=== PATIENT | female | born 1995 | race Caucasian/White ===

== ENCOUNTER 2017-05-09 20:55 | Inpatient (IN) | payer OTHER ==
[~2017-05-09] VITALS: Ht 167.6 cm; Wt 94.8 kg
[2017-05-09] MEDS ORDERED: OXYTOCIN 10 UNITS/ML VIAL IM ONE (21:40)
[2017-05-09] MEDS ORDERED: PROMETHAZINE 25 MG/ML VIAL IVP PRN (21:40)
[2017-05-09] MEDS ORDERED: NALBUPHINE 10 MG/ML AMP IVP PRN (21:40)
[2017-05-09] MEDS ORDERED: OXYTOCIN 20 UNITS in LACTATED RINGERS 1,000 ML IV SCH (21:40)
[2017-05-09] MEDS ORDERED: AMPICILLIN 2,000 MG in NACL 0.9% 100 ML IV ONE (21:55)
[2017-05-09] MEDS: LACTATED RINGERS 1,000 ML IV SCH (22:04)
[2017-05-09] MEDS ORDERED: AMPICILLIN 2,000 MG VIAL ONE (22:07)
[2017-05-09] MEDS ORDERED: NALBUPHINE HYDROCHLORIDE 10 MG/ML VIAL ONE (22:07)
[2017-05-09] MEDS ORDERED: PROMETHAZINE 25 MG/ML VIAL ONE (22:08)
[2017-05-09 22:10] LABS: BASOPHILS # (AUTO) 0.1 K/uL (0.00-0.22); BASOPHILS % (AUTO) 0.7 % (0.0-2.0); EOSINOPHILS # (AUTO) 0.1 K/uL (0-0.4); EOSINOPHILS % (AUTO) 0.7 % (0.0-4.0); HEMATOCRIT 32.8 % (36-48); HEMOGLOBIN 10.9 g/dL (12.0-16.0); LYMPHOCYTES # (AUTO) 3.3 K/uL (2.5-16.5); LYMPHOCYTES % (AUTO) 22.6 % (20.5-51.1); MEAN CORPUSCULAR HEMOGLOBIN 29 pg (27-31); MEAN CORPUSCULAR HGB CONC 33 g/dL (33-37); MEAN CORPUSCULAR VOLUME 88 fL (80-94); MONOCYTES # (AUTO) 0.6 K/uL (0.8-1.0); MONOCYTES % (AUTO) 4.3 % (1.7-9.3); NEUTROPHILS # (AUTO) 10.4 K/uL (1.8-7.7); NEUTROPHILS % (AUTO) 71.7 % (42.2-75.2); PLATELET COUNT (AUTO) 393 K/uL (140-450); RED BLOOD CELL COUNT(AUTO) 3.75 MIL/uL (4.20-5.40); WHITE BLOOD COUNT (AUTO) 14.5 K/uL (4.5-11.0)
[2017-05-09 22:23] LABS: BILIRUBIN,URINE NEGATIVE (NEGATIVE); BLOOD, URINE 3+ (NEGATIVE); COLOR,URINE YELLOW (YELLOW); LEUKOCYTE ESTERASE ,URINE TRACE (NEGATIVE); NITRITE, URINE NEGATIVE (NEGATIVE); PH,URINE 6.5 (5.0-9.0); UGLUCOSE NEGATIVE (NEGATIVE)
[2017-05-09 22:24] LABS: APPEARANCE,URINE HAZY (CLEAR)
[2017-05-09 22:29] LABS: BARBITURATE, URINE POS. ng/ml (NEG <=200); BENZODIAZEPINE, URINE NEG. ng/mL (NEG <=200); CANNABINOID, URINE NEG. ng/mL (NEG <=50); COCAINE, URINE NEG. ng/mL (NEG <=300); OPIATE, URINE NEG. ng/mL (NEG <=2000); PHENCYCLIDINE SCREEN,URINE NEG. ng/mL (NEG <=25)
[2017-05-09] MEDS ORDERED: BUPIVACAINE 0.125%/NS PREMIX 250 ML ONE (22:42)
[2017-05-09 22:52] LABS: RBC,URINE 0-5 (RARE) /HPF (0-5)
[2017-05-09 22:53] LABS: WBC,URINE 20-60 /HPF (0-5)
[2017-05-09] MEDS ORDERED: BUPIVACAINE 0.125%/NS PREMIX 250 ML EPI SCH (23:30)
[2017-05-10] MEDS ORDERED: AMPICILLIN 1,000 MG in NACL 0.9% 50 ML IV SCH ×2
[2017-05-10] MEDS ORDERED: FERR325E14 PO (00:26)
[2017-05-10] MEDS ORDERED: PREN-546 PO (00:26)
[2017-05-10 00:30] VITALS: BP 132/75
[2017-05-10] MEDS ORDERED: OXYTOCIN 10 UNITS/ML VIAL ONE (01:35)
[2017-05-10] MEDS ORDERED: AMPICILLIN 1,000 MG VIAL ONE (01:35)
[2017-05-10] MEDS ORDERED: OXYTOCIN 20 UNITS/LR PREMIX 1,000 ML IV ONE (01:36)
[2017-05-10] MEDS: LACTATED RINGERS 1,000 ML IV SCH (01:50)
[2017-05-10] MEDS ORDERED: BENZOCAINE/MENTHOL 20%-0.5% 60 GM CAN TP PRN (05:25)
[2017-05-10] MEDS ORDERED: TEMAZEPAM 15 MG CAP PO PRN (05:25)
[2017-05-10] MEDS ORDERED: oxyCODONE/APAP 5/325 MG 1 TAB TAB PO PRN (05:25)
[2017-05-10] MEDS ORDERED: OXYTOCIN 10 UNITS/ML VIAL IM PRN (05:25)
[2017-05-10] MEDS ORDERED: METHYLERGONOVINE 0.2 MG/ML AMP IM PRN (05:25)
[2017-05-10] MEDS ORDERED: MEASLES, MUMPS, AND RUBELLA 1 VIAL SQVAC PRN (05:25)
[2017-05-10] MEDS ORDERED: HYDROcodone/APAP 5/325 MG 1 TAB TAB PO PRN (05:25)
[2017-05-10] MEDS ORDERED: IBUPROFEN 800 MG TAB PO PRN (05:25)
--- NOTE | 2017-05-10 06:33 | NUR ---
PATIENT HAS BEEN SCREENED AND CATEGORIZED LOW NUTRITION RISK. PATIENT WILL BE SEEN WITHIN 7 DAYS OF ADMISSION. 05/16/17 DAPHNE BRISENO MS, RDN
[2017-05-10] MEDS ORDERED: DOCUSATE SOD/SENNA 50/8.6 MG 1 TAB PO SCH (21:00)
[2017-05-11 06:35] LABS: HEMATOCRIT 28.3 % (36-48); HEMOGLOBIN 9.3 g/dL (12.0-16.0)
[2017-05-12] MEDS ORDERED: IBUP-1842 PO (15:18)
[2017-05-12] MEDS ORDERED: ASCO500T45 PO (15:26)
[2017-05-12] MEDS ORDERED: FERR324T11 PO (15:26)
== END 2017-05-12 18:05 | disposition home or self-care (01) | DRG 560 ==
LOC: MFCC 20:55 → OBSVTOIN 20:55 → MFCC 21:00
PROVIDERS: ADMIT Obstetrics & Gynecology; ATTEND Obstetrics & Gynecology
PROC: 10E0XZZ Delivery of Products of Conception, External Approach (ICD-10-PCS; principal; 2017-05-10)
PROC: 00HU33Z Insertion of Infusion Device into Spinal Canal, Percutaneous Approach (ICD-10-PCS; 2017-05-10)
PROC: 3E0R3BZ Introduction of Anesthetic Agent into Spinal Canal, Percutaneous Approach (ICD-10-PCS; 2017-05-10)
DX: O99.214 Obesity complicating childbirth (principal); E66.01 Morbid (severe) obesity due to excess calories; O89.4 Spinal and epidural anesthesia-induced headache during the puerperium; Z37.0 Single live birth; Z3A.37 37 weeks gestation of pregnancy; Z28.21 Immunization not carried out because of patient refusal
CPT/HCPCS: 36415; 51702; 59409; 76805; 80305; 81001; 85018; 85025; 86592; 86762; 86886; 86900; 86901; 87086; 87340; 87653-90; J0290; J2300; J2550; J2590; J3490; J7120; Q0092